=== PATIENT | male | born 1975 | race African-American/Black ===

== ENCOUNTER 2017-04-09 07:31 | Emergency (ER) | END 2017-04-09 10:42 | disposition left against medical advice (07) ==

== ENCOUNTER 2017-04-21 06:20 | Emergency (ER) | END 2017-04-22 14:15 | disposition home or self-care (01) ==

== ENCOUNTER 2017-04-23 09:28 | Emergency (ER) | END 2017-04-23 10:55 | disposition home or self-care (01) ==

== ENCOUNTER 2017-05-09 23:14 | Emergency (ER) | END 2017-05-10 01:16 | disposition home or self-care (01) ==

== ENCOUNTER 2017-06-22 23:39 | Emergency (ER) | END 2017-06-23 06:53 | disposition left against medical advice (07) ==

== ENCOUNTER 2017-06-24 18:26 | Emergency (ER) | END 2017-06-24 22:53 | disposition home or self-care (01) ==

== ENCOUNTER 2017-06-25 02:18 | Emergency (ER) | END 2017-06-27 14:15 | disposition left against medical advice (07) ==

== ENCOUNTER 2018-07-15 15:21 | Emergency (ER) | payer BC ==
[~2018-07-15] VITALS: Wt 122.3 kg
[~2018-07-15 15:21] MED LIST: ALBU18HF INHALATION; ASPI325T32 PO; CARV6.2579 PO; DOCU-159 PO; FURO40TA4 PO; HYDR25TA6 PO; LISI-313 PO; NITR0.4T32 SL; POTA10TA37 PO; SIMV40TA7 PO; SPIR25TA PO
[2018-07-15 15:31] VITALS: Wt 122.3 kg
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
[2018-07-15] MEDS ORDERED: SOD CHLORIDE 0.9% 500 ML IV STA (18:58)
[2018-07-15] MEDS ORDERED: IBUPROFEN 600 MG TAB PO ONE (19:00)
[2018-07-15] MEDS ORDERED: ASPIRIN 81 MG TAB PO ONE (19:00)
[2018-07-15] MEDS ORDERED: CEFTRIAXONE 1 GM/50 ML (PMX) 50 ML IVPB ONE (19:00)
[2018-07-15] MEDS ORDERED: NAPR-985 PO (19:47)
[2018-07-15] MEDS ORDERED: OXYCODONE/ACETAMINOPHEN (5/325) TAB PO ONE (20:00)
[2018-07-15] MEDS ORDERED: HYDROCODONE/APAP (5/325) TAB PO ONE (20:30)
[2018-07-15 20:59] VITALS: BP 139/61; PULSE 78; RESP 22
--- NOTE | 2018-07-18 11:46 | EN ---
Date/Time of Note Date/Time of Note DATE: 07/18/18 TIME: 11:45 ER Progress Note Patient's blood cultures were brought to my attention today having been drawn on July 15. They demonstrate a staph species growing in 2 blood culture bottles. I reviewed the patient's records that demonstrated he was treated with Rocephin, which did not seem to be adequate coverage for the bacteria that was growing. I attempted to call the patient back at the number listed on the chart, but there was no functional phone number that worked. I will be asking for a certified letter to be sent but otherwise at this time have no way of getting hold of this patient. ALICIA DE LA TORRE Jul 18, 2018 11:46
== END 2018-07-15 20:59 | disposition home or self-care (01) ==
LOC: E/R 15:21
DX: F15.10 Other stimulant abuse, uncomplicated (principal); I25.10 Atherosclerotic heart disease of native coronary artery without angina pectoris; I11.0 Hypertensive heart disease with heart failure; I50.9 Heart failure, unspecified; J45.909 Unspecified asthma, uncomplicated; F17.210 Nicotine dependence, cigarettes, uncomplicated; Z79.82 Long term (current) use of aspirin
CPT/HCPCS: 36415; 71045; 80053; 80307; 83690; 83880; 84484; 85025; 85610; 85730; 86140; 86305; 87040; 93005; 96374; 99285; J0696; J7040; Z7610; 83605

== ENCOUNTER 2018-07-15 21:08 | Emergency (ER) | payer BC ==
[~2018-07-15] VITALS: Ht 188 cm; Wt 122.7 kg
[~2018-07-15 21:08] MED LIST changes: +NAPR-985 PO
[2018-07-15 21:34] VITALS: Ht 188 cm; Wt 122.7 kg
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
--- NOTE | 2018-07-16 06:15 | PSY ---
Date/Time of Note Date/Time of Note DATE: 07/16/18 TIME: 05:54 Psychiatric Subjective Eval Consent Pt consented to telemedicine: Yes Subjective Evaluation Patient location: emergency Chief Complaint: requesting mental health eval.wants wound check both legs,just dc'd few min Medical history Problems Medical Problems: (1) Agitation Status: Acute (2) Altered mental status Status: Acute (3) Auditory hallucinations Status: Acute (4) Back pain Status: Acute (5) Cardiomyopathy Status: Acute (6) Chest pain Status: Acute (7) Chest pain Status: Acute (8) Chest pain Status: Acute (9) Chest pain Status: Acute (10) Encounter for medication refill Status: Acute (11) Encounter for medication refill Status: Acute (12) Facial cellulitis Status: Acute (13) Folliculitis Status: Acute (14) History of cardiomyopathy Status: Acute (15) Hypertension Status: Acute (16) Medication refill Status: Acute (17) Methamphetamine abuse Status: Acute (18) Methamphetamine abuse Status: Acute (19) Methamphetamine abuse Status: Acute (20) Patient left without being seen Status: Acute (21) Psychological disorder Status: Acute (22) Psychological disorder Status: Acute (23) Sialolithiasis Status: Acute (24) Suicidal ideation Status: Acute (25) Tinea cruris Status: Acute (26) UTI (urinary tract infection) Status: Acute Allergies: Coded Allergies: amoxicillin (Verified Allergy, Unknown, sob, 06/25/17) Assessment and Plan Recommendation/Plan Discharge Disposition: Community (home) Legal Status: Voluntary Assessment Additional comments: IDENTIFYING INFORMATION: 43 year old AAM patient who is currently located at the hospital and for whom psychiatric consultation was requested. SOURCES OF INFORMATION: The patient who appears to be reliable and the medical records; the nursing staff. I asked to talk with the patient's family members but he reports that there is no one I can call. CHIEF COMPLAINT: "voices". HISTORY OF PRESENT ILLNESS: The patient was interviewed via telemedicine in the presence of and under the supervision of nursing staff of the hospital. The consent to conducting this interview via telemedicine was obtained by the nursing staff at the hospital. NIDHI [place] reports that the patient presented with chest pain, AH, behavior in the context of using meth. Dr. Hawkins reports that the patient presented right back to the ER where he had presented for CP. He reported having SI. The patient reports having VH of ghosts, AH of scriptures of the Bible. Reports that he feels people were watching him a few days ago but not today. He said that he never said that he is suicidal. Admits to feeling depressed at times since 3-4 days ago, but denies having anhedonia, insomnia, fatigue. The patient denies having SI, HI, anhedonia. The patient denies using alcohol heavily or regularly. The patient reports using meth every few days. Last use was 3 days ago. The patient denies using any other substances. In terms of past psychiatric history, the patient reports having a history of 2- 3 past psychiatric hospitalizations. The patient reports having a history of past suicide attempt; this was 1 year ago by running into traffic. Past medication trials: risperidone with good effects. PAST MEDICAL HISTORY: CHF, DDD. CURRENT MEDICATIONS: lasix, potassium, norco prn, simvastatin, HCTZ, NG, potassium, spirinolactone, carvedilol, lisinopril, aspirin, albuterol prn, risperidone 2 mg po bid. ALLERGIES TO MEDICATIONS: amoxicillin. LABORATORY TESTS: CBC with WBCs 10.5, H/H 12.3/37.5, PLTS 163, CMP with potassium 3.2, AST 72, TSH 1.84, alcohol level not detected, UDS on 06/25: + amph. SOCIAL HISTORY: , has 4 kids, homeless, was staying at drug rehab until a few days ago, no access to firearms. REVIEW OF SYSTEMS: Constitutional (e.g., fever, weight loss): negative; Eyes, Ears, Nose, Mouth, Throat: negative; Cardiovascular: negative; Respiratory: negative; Gastrointestinal: negative; Genitourinary: negative; Musculoskeletal: negative; Integumentary (skin and/or breast): negative; Neurological: negative; Psychiatric: as per HPI; Endocrine: negative; Hematologic/Lymphatic: negative; Allergic/Immunologic: negative. MENTAL STATUS EXAMINATION: General Appearance and Behavior: Calm, cooperative with the interview, pleasant with the current interviewer, makes fair eye contact, fairly groomed, no abnormal movements noted, Speech: Regular rate, regular rhythm, normal latency, normal volume, somewhat decreased amount, Flow of thought: sequential, logical, goal-directed, Content of thought: + auditory hallucinations, + visual hallucinations, + mild paranoid delusions, negative for suicidal ideation; no homicidal ideation, Mood: "not good", Affect: somewhat dysthymic, reactive, Attention: normal based on the interview, Insight: fair, Judgment: poor, Memory: normal based on the interview, Sensorium: alert and oriented to person, place and date. ASSESSMENT: The patient's presentation and history are consistent with the diagnosis of unspecified psychotic disorder, stimulant use disorder. The patient presents with mild sxs of psychosis in the context of medication noncompliance, psychosocial stressors and substance use. The patient complains of auditory hallucinations, visual hallucinations, but has insight. The patient has mild paranoid thoughts that are now resolving. PLAN: - Medication management: Would restart risperidone 1 mg by mouth twice a day (the patient has not been compliant lately). - Labs: Please check Alcohol level, UDS. - Psychotherapy: Provided supportive psychotherapy and psychoeducation. - Disposition: If the patient's alcohol level is above the legal limit, then please reconsult psychiatry to determine disposition once the patient's alcohol level is below the legal limit. If the patient's urine drug screen test is positive for any substances other t alvarado stimulants, then please call back a current provider to address that. If the patient's alcohol level comes back below the legal limit, then the patient is appropriate for the outpatient level of care at this time from a psychiatric perspective. The patient is not an imminent danger to self or others. The patient is motivated for outpatient treatment. The patient agrees to be compliant with outpatient follow-up appointments and pharmacotherapy as indicated. Would recommend that the patient follows up with a psychiatrist. Resources for outpatient follow-up will be provided by the hospital staff. The patient's risk for completed suicide is high in comparison to the general population. Risk factors include marital status, substance use disorder, psychotic symptoms, history of past suicide attempts,, gender, chronic medical problems, poor social support. Protective factors include race, absence of bipolar disorder, major depressive disorder, anxiety disorder, personality disorder, no access to firearms,. The patient's risk for completed suicide cannot be modified more effectively with inpatient admission at this time. The patient is not an imminent danger to self or others at this time and does not meet the legal criteria for involuntary admission. Risks, benefits, alternatives were discussed and the patient provided informed consent to proceed with the above plan. Counselled in detail regarding addiction. Discussed about the above plan with Dr. Hawkins. EDEL MATUTE MD Jul 16, 2018 06:04
[2018-07-16] MEDS ORDERED: RISPERIDONE 1 MG TAB PO ONE (06:30)
[2018-07-16 07:30] VITALS: BP 149/80; PULSE 75; RESP 18
[2018-07-16] MEDS ORDERED: RISPERIDONE 1 MG TAB PO SCH (21:00)
== END 2018-07-16 07:31 | disposition home or self-care (01) ==
LOC: E/R 21:08
DX: F99 Mental disorder, not otherwise specified (principal); I10 Essential (primary) hypertension; I50.9 Heart failure, unspecified; I25.10 Atherosclerotic heart disease of native coronary artery without angina pectoris; F17.210 Nicotine dependence, cigarettes, uncomplicated; J45.909 Unspecified asthma, uncomplicated; Z79.82 Long term (current) use of aspirin
CPT/HCPCS: 99283; Z7610

== ENCOUNTER 2018-08-06 21:24 | Emergency (ER) | payer BC ==
[~2018-08-06] VITALS: Ht 188 cm; Wt 114.1 kg
[2018-08-06 21:35] VITALS: Ht 188 cm; Wt 114.1 kg
[2018-08-07 02:56] VITALS: BP 119/79; PULSE 64; RESP 14
[2018-08-07] MEDS ORDERED: CARV6.2579 PO (05:53)
[2018-08-07] MEDS ORDERED: HYDR25TA6 PO (05:53)
[2018-08-07] MEDS ORDERED: ASPI325T32 PO (05:53)
[2018-08-07] MEDS ORDERED: FURO40TA4 PO (05:53)
[2018-08-07] MEDS ORDERED: LISI-313 PO (05:53)
[2018-08-07] MEDS ORDERED: NITR0.4T32 SL (05:53)
--- NOTE | 2018-08-10 14:53 | RADRPT ---
Vent Rate: 66 bpm RR Interval: 0 msec MT Interval: 180 msec QRS Duration: 106 msec QT Interval: 410 msec QTC Interval: 429 msec P-R-T [place]: 40 - -24 - 1 degrees Sinus rhythm with occasional premature ventricular complexes Incomplete right bundle branch block Moderate voltage criteria for LVH, may be normal variant Nonspecific T wave abnormality Abnormal ECG Electronically Signed By: [facility]
--- NOTE | 2018-08-10 15:05 | RADRPT ---
Vent Rate: 86 bpm RR Interval: 0 msec MI Interval: 164 msec QRS Duration: 100 msec QT Interval: 378 msec QTC Interval: 452 msec P-R-T [place]: 58 - -24 - 29 degrees Normal sinus rhythm Minimal voltage criteria for LVH, may be normal variant Borderline ECG Electronically Signed By: [facility]
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
== END 2018-08-07 06:05 | disposition home or self-care (01) ==
LOC: E/R 21:24
DX: R07.9 Chest pain, unspecified (principal); J45.909 Unspecified asthma, uncomplicated; I11.0 Hypertensive heart disease with heart failure; I50.9 Heart failure, unspecified; I25.10 Atherosclerotic heart disease of native coronary artery without angina pectoris; Z79.82 Long term (current) use of aspirin; Z87.891 Personal history of nicotine dependence
CPT/HCPCS: 36415; 71045; 80048; 84484; 85025; 93005